=== PATIENT | female | born 1990 | race Caucasian/White ===

== ENCOUNTER 2022-03-11 00:43 | Inpatient (IN) | payer OTHER ==
[2022-03-11] VITALS (24 sets, daily range): BP systolic 90–1448; BP diastolic 58–84; PULSE 69–90; TEMP 97.8–98.9
[~2022-03-11] VITALS: Ht 152.4 cm; Wt 73.6 kg
[2022-03-11 03:46] LABS: BASO # 0.1 K/mm3 (0.0-0.2); BASO % 0.4 % (0.0-2.0); EOS # 0.1 K/mm3 (0.0-0.7); EOS % 0.8 % (0.0-4.0); GRAN # 10.2 K/mm3 (1.4-6.5); GRAN % 77.7 % (42.2-75.2); HEMATOCRIT 37.4 % (37.0-47.0); HEMOGLOBIN 12.3 g/dl (12.5-16.0); LYMPH # 1.6 K/mm3 (1.2-3.4); LYMPH % 11.8 % (20.0-51.0); MEAN CELL VOLUME 85 fl (80.0-100.0); MEAN CORPUSCULAR HEMOGLOBIN 28 pg (27-31); MEAN CORPUSCULAR HGB CONC 33 g/dl (33.0-37.0); MEAN PLATELET VOLUME 12.6 fl (7.4-10.4); MONO # 1.1 K/mm3 (0.1-0.6); MONO % 8.4 % (1.7-9.3); PLATELET COUNT 244 K/mm3 (130-400); RED BLOOD COUNT 4.42 M/mm3 (4.10-5.30); REDCELL DISTRIBUTION WIDTH-CV 13.1 % (11.5-14.5)
--- NOTE | 2022-03-11 04:48 | NUR ---
@0101 PATIENT ARRIVED ON THE UNIT WITH A COMPLAINT OF UTERINE CONTRACTIONS. @0120 SVE /-2 WITH BLOODY SHOW. @0220 SVE --2 @0230 DR. ROSE WAS NOTIFIED REGARDING PT STATUS AND GBS(+). ADMIT ORDERS WERE GIVEN.
--- NOTE | 2022-03-11 05:46 | NUR ---
@0337 PATIENT EPIDURAL WAS PLACED AFTER RECEIVING 1L OF LR BOLUS. PATIENT FOLET CATHETER WAS PLACED AT 0350 RN REMAINED AT THE BEDSIDE ASSESSING PATIENT AFTER EPIDURAL PLACEMENT. PATIENT BABY HAD A 2MIN LATE DECEL. RN REPOSITIONED PATIENT SEVERAL TIMES AND APPLIED O2 10L WITH A 500CC BOLUS CHARGE NURSE WAS NOTIFIED AND KERRY DANIELS. B/P 109/57 BABY RECOVERED.
--- NOTE | 2022-03-11 06:30 | NUR ---
Continues to push with contractions. Nurse Preston stays for delivery with patient. Spontaneous delivery of baby girl by Dr. Downing. 0722 Placenta manually delivered by Dr. Downing with d&c done. New orders reieved by Dr. Downing. 0723 Ancef 2 gram iv given as ordered by Dr. Downing. 0726 Methergine 0.2 mg iv given by Wendy Nevarez r.n.
--- NOTE | 2022-03-11 07:00 | NUR ---
Dr. Downing still working with patient to get placenta out.
--- NOTE | 2022-03-11 07:15 | NUR ---
Dr. Downing continues to work with patient to get placenta out. Matty mario here to give medication for Dr. Downing to do a d&C. See anethesia notes please.
--- NOTE | 2022-03-11 10:30 | NUR ---
1030- Pt stands at side of bed. Reports nausea, denies dizziness. Pt back to bed. Sits on bedpan, able to void 675mls. Pericare performed. Pt transfers independently to wheelchair. Taken to PP room, transfers to bed easily. Oriented to room. Call light within reach. Pt tolerated well.
[2022-03-11] MEDS ORDERED: LEXAPRO 10MG10 MG PO (12:32)
[2022-03-11] MEDS ORDERED: PRENATAL TABLET PO (12:33)
[2022-03-11] MEDS ORDERED: FERRO-TIME325 MG PO (12:33)
--- NOTE | 2022-03-11 14:30 | NUR ---
Rests in bed, alert, eating sandwich. Tylenol 1000 mg given per request and as ordered.
[2022-03-11] MEDS ORDERED: MOTRIN 800800 MG/TAB PO (16:35)
[2022-03-12 07:43] LABS: HEMOGLOBIN 8.4 g/dl (12.5-16.0)
[2022-03-12 07:44] LABS: HEMATOCRIT 26.1 % (37.0-47.0)
[2022-03-12 09:45] VITALS: BP 130/88; PULSE 109; TEMP 98.6
--- NOTE | 2022-03-12 12:29 | NUR ---
Initial visit; Patient thanked Hop Strainer for offering congratulations and God's blessings for the of her daughter. Hop Strainer thanked Mom for choosing [facility].
[2022-03-12 13:45] VITALS: BP 102/61; PULSE 81; TEMP 97.5
--- NOTE | 2022-03-12 15:00 | NUR ---
This nurse contacted Dr. Medrano and received a verbal order to dc patients INT.
[2022-03-12 21:00] VITALS: BP 111/71; PULSE 80; TEMP 98.3
[2022-03-13 08:00] VITALS: BP 134/71; PULSE 82; TEMP 98
--- NOTE | 2022-03-13 11:58 | NUR ---
ALL DC PAPERWORK REVIEWED AND UNDERSTOOD BY PARENTS AT THIS TIME. ALL BELONGINGS ACCOUNTED FOR. PT STABLE AND BLEEDING SCANT WITH NO CLOTS NOTED. FUNDUS REMAINS FIRM 2FB BELOW UMBILICUS. INFANT PLACED SAFELY AND PROPERLY IN CARSEAT. DENIES FURTHER QUESTIONS OR CONCERNS. AMBULATORY FROM UNIT WITH FOB PRESENT AT THIS TIME.
== END 2022-03-13 11:58 | disposition home or self-care (01) | DRG 807 ==
LOC: LDRO 00:43 → LDR 02:54 → OB 02:54
PROVIDERS: Obstetrics & Gynecology; ADMIT Obstetrics & Gynecology
PROC: 10E0XZZ Delivery of Products of Conception, External Approach (ICD-10-PCS; principal; 2022-03-11)
PROC: 10D17Z9 Manual Extraction of Products of Conception, Retained, Via Natural or Artificial Opening (ICD-10-PCS; 2022-03-11)
PROC: 0KQM0ZZ Repair Perineum Muscle, Open Approach (ICD-10-PCS; 2022-03-11)
PROC: 10907ZC Drainage of Amniotic Fluid, Therapeutic from Products of Conception, Via Natural or Artificial Opening (ICD-10-PCS; 2022-03-11)
DX: O99.824 Streptococcus B carrier state complicating childbirth (principal); Z37.0 Single live birth; Z3A.38 38 weeks gestation of pregnancy; O99.344 Other mental disorders complicating childbirth; F41.9 Anxiety disorder, unspecified; Z86.16 Personal history of COVID-19; O69.89X0 Labor and delivery complicated by other cord complications, not applicable or unspecified; O70.1 Second degree perineal laceration during delivery; O90.81 Anemia of the puerperium; D64.9 Anemia, unspecified; Z23 Encounter for immunization
CPT/HCPCS: J0690; J2210; J2400; J2540; J2590; J2704; J2795; J3010; J7120

== ENCOUNTER → 2022-03-18 | Outpatient (CLI) | payer OTHER ==
[~2022-03-18] MED LIST: FERRO-TIME325 MG PO; LEXAPRO 10MG10 MG PO; MOTRIN 800800 MG/TAB PO; PRENATAL TABLET PO
--- NOTE | 2022-03-18 13:46 | NUR ---
Pt, Chelsi Cantu, present to walk-in clinic with one week old baby girl, Roma Cantu, to check Roma's weight. She is accompanied by her spouse. Roma was born on [birth year] and weighed 7# 3oz (3260 gms). Pt states Roma was seen at [facility] on 03/15/22 and weighed 6# 12.5oz. Today Roma weighs 6# 15.3oz (3154 gms). POC: continue ad gaby. F/U: As scheduled with doctors and walk-in clinic prn.
== END ==
LOC: LAC 13:28
DX: Z39.1 Encounter for care and examination of lactating mother (principal)

== ENCOUNTER → 2022-03-23 | Outpatient (CLI) | payer OTHER ==
--- NOTE | 2022-03-23 13:42 | NUR ---
Pt, Chelsi Cantu, and her spouse present with 12 day old baby girl, Roma Cantu for a weight check. Roma was born on [birth year] and weighed 7# 3oz. She was weighed on 03/18/22 and weighed 6# 15.3oz. Today she weighs 7# 8.2oz, for a gain of 9oz over 5 days. Pt states Roma is only nursing for about 8 minutes so is relieved Roma is gaining weight well. POC: continue BF prn. F/U: As scheduled with doctors, BF clinic prn. Questions invited and answered.
== END ==
LOC: LAC 13:25
DX: Z39.1 Encounter for care and examination of lactating mother (principal)